=== PATIENT | female | born 2000 | race African-American/Black ===

== ENCOUNTER 2018-10-09 09:21 | Emergency (ER) | payer SELFPAY ==
[~2018-10-09] VITALS: Wt 65.3 kg
[2018-10-09] MEDS ORDERED: LIDOCAINE 1% (MDV) 10 ML INJ INJ STA (12:54)
[2018-10-09] MEDS ORDERED: DIPHTH/TET/ACEL PERTUSS (ADULT) 0.5 ML VIAL IM* ONE (13:00)
[2018-10-09] MEDS ORDERED: LIDOCAINE 1% (MDV) 20 ML INJ ONE (13:03)
[2018-10-09] MEDS ORDERED: SULF1TAB31 PO (13:19)
[2018-10-09] MEDS ORDERED: HYDROCODONE/APAP (5/325) TAB PO ONE (14:00)
[2018-10-09 14:06] VITALS: BP 118/74; PULSE 78; RESP 18
--- NOTE | 2018-10-10 00:29 | ERD ---
ER Documentation Chief Complaint Chief Complaint abscess in genitourinary area HPI 18 yo F with no significant past medical hx presents to the ED complaining in intermittent painful nodules along her L inguinal fold ongoing for the past 2 years. She has tried to manually express discharge from nodules without relief. She admits to waxing over the area which has exacerbated her sx. States her nodules have become more painful over the past few days, and progressively enlarging. Took one abx pill yesterday "that my grandmother gave me." Denies associated fevers, chills, nausea, vomiting, abdominal pain, urinary sx, urinary discharge. No other complaints. Unknown if tetanus UTD. ROS All systems reviewed and are negative except as per history of present illness. Medications Home Meds Active Scripts Sulfamethoxazole/Trimethoprim* (Bactrim Ds* Tablet) 1 Each Tablet, 1 TAB PO BID, #14 TAB Prov:SUSY HEDRICK PA-C 10/09/18 PMhx/Soc Medical and Surgical Hx: pt denies Medical Hx, pt denies Surgical Hx Hx Alcohol Use: No Hx Substance Use: No Hx Tobacco Use: No Smoking Status: Never smoker Physical Exam Vitals Vital Signs Date Temp Pulse Resp B/P (MAP) Pulse Ox O2 O2 Flow FiO2 Time Delivery Rate 10/09/18 98.1 78 18 118/74 97 Room Air 14:06 (89) 10/09/18 98.4 95 20 113/66 97 09:26 (82) Physical Exam Const: No acute distress Head: Atraumatic Eyes: Normal Conjunctiva ENT: Normal External Ears, Nose and Mouth. Neck: Full range of motion. No meningismus. Abd: Soft, non tender, non distended. Normal bowel sounds Skin: + three erythematous, tender nodules, approximately 1cm diameter along the L inguinal fold with palpable sinus tract, no clear area of fluctuance or induration. No active drainage. No lymphatic streaking. Back: No midline or flank tenderness Ext: No cyanosis, or edema Neur: Awake and alert Psych: Normal Mood and Affect Results 24 hrs Current Medications Medications Dose Sig/Lisa Start Time Status Last (Trade) Ordered Route PRN Stop Time Admin Dose Reason Admin Diphtheria/ 0.5 ml ONCE ONCE 10/09/18 DC 10/09/18 Tetanus/Acell IM* 13:00 14:00 Pertussis 10/09/18 13:01 (Adacel) Lidocaine 10 ml ONCE STAT 10/09/18 DC HCl INJ 12:54 (Lidocaine 10/09/18 12:57 1% (Mdv) 10 ml) Lidocaine 20 ml STK-MED 10/09/18 DC (Xylocaine ONCE .ROUTE 13:03 1% (Mdv) 20 10/09/18 13:04 ml) 1 tab ONCE ONCE 10/09/18 DC 10/09/18 Acetaminophen PO 14:00 13:59 / 10/09/18 14:01 Hydrocodone Bitart ([place] (5/325)) Procedures/MDM MEDICAL DECISION MAKIN yo F presents with palpable sinus tract and multiple tender nodules along her L inguinal fold. Sx have been intermittently present for 2 years. There is no clear area of fluctuance or induration on physical exam. No evidence of abscess, significant cellulitis, sepsis or other deep tissue infection. Tdap updated. I&D was attempted. No purulent drainage was expressed. Given history and physical, sx are most consistent with hydradenitis suppurativa. Less likely folliculitis, bartholin cyst, pilonidal dz. Pt has no insurance, was given referral to [facility] and [facility]. May need referral to varnishing unit tool setter/general surgeon for definitive treatment. Given [place] here for pain relief and d'c mayra with rx Keflex. Recommend sitz baths and warm compresses as well. Strict return precautions given. PRESCRIPTIONS: Keflex SPECIALIST FOLLOW UP RECOMMENDED: Dermatology Departure Diagnosis: Primary Impression: Inguinal cyst Condition: Stable Referrals: [facility] YOU HAVE RECEIVED A MEDICAL SCREENING EXAM AND THE RESULTS INDICATE THAT YOU DO NOT HAVE A CONDITION THAT REQUIRES URGENT TREATMENT IN THE EMERGENCY DEPARTMENT. FURTHER EVALUATION AND TREATMENT OF YOUR CONDITION CAN WAIT UNTIL YOU ARE SEEN IN YOUR DOCTORS OFFICE WITHIN THE NEXT 1-2 DAYS. IT IS YOUR RESPONSIBILITY TO MAKE AN APPOINTMENT FOR FOLOW-UP CARE. IF YOU HAVE A PRIMARY DOCTOR --you should call your primary doctor and schedule an appointment IF YOU DO NOT HAVE A PRIMARY DOCTOR YOU CAN CALL OUR PHYSICIAN REFERRAL HOTLINE AT IF YOU CAN NOT AFFORD TO SEE A PHYSICIAN YOU CAN CHOSE FROM THE FOLLOWING [facility] [address] [facility]. [facility] [address] [facility] [address] [facility] [facility] [address] [facility] [facility] [address] [facility]. [address] [facility] () Usted se kraus hecho un examen mdico de control que le indica que no est en tejinder condicin que requiera tratamiento urgente en el Departamento de Emergencia. Un estudio ms profundo y el tratamiento de coates condicin pueden esperar sin ningn riesgo hasta que usted sea atendida/o en el consultorio de coates mdico o tejinder clnica. Es responsabilidad suya arreglar tejinder eloisa para el seguimiento del sarath. MANEJO DE CONDICIONES NO URGENTES EN EL FUTURO 1) Si usted tiene un mdico de atencin primaria: Usted debera llamar a coates mdico de atencin primaria antes de venir al departamento de emergencia. Despus de las horas de consultorio, coates doctor o coates asociado/a est disponible por telfono. El mdico o enfermero de lauryn en el servicio telefnico puede asesorarle por josafat medio para atender el problema, o sarath contrario se puede programar tejinder eloisa. 2) Si usted no tiene un mdico de atencin primaria: Llame al mdico o condado institucions de referencia que aparece abajo claire las horas de consultorio para hacer tejinder eloisa para que le vean. SI USTED NO PUEDE PAGAR PARA KHADRA UN MEDICO puede ir a: [facility] [address] [place] [address] [facility] [address] [place] [address] [facility] [address] [place] [address] [facility] [facility] [address] [place], [place] [id number] Additional Instructions: Apply warm compresses to the area for at least 10 minutes 4 times a day. Also some urge herself in Epsom salt baths for at least 2 times a day. Take the antibiotics as prescribed for the next few days. Please follow up with other [facility] or [facility] for possible referral to a varnishing unit tool setter or general surgeon for further management of your symptoms. Return here for any new or worsening symptoms. [facility] [address] [place] [address] [address] SUSY HEDRICK PA-C Oct 10, 2018 00:08
== END 2018-10-09 14:10 | disposition home or self-care (01) ==
LOC: FTE 09:21
DX: N90.7 Vulvar cyst (principal); Z23 Encounter for immunization
CPT/HCPCS: 90471; 90715